=== PATIENT | female | born 1990 | race African-American/Black ===

== ENCOUNTER 2021-09-02 | Emergency (ER) | payer MEDICAID ==
[~2021-09-02] VITALS: Ht 157.5 cm; Wt 113.4 kg
[2021-09-02 00:23] VITALS: BP 149/86
[2021-09-02] MEDS ORDERED: METH4TAB3 PO (00:55)
== END 2021-09-02 01:07 | disposition home or self-care (01) ==
LOC: ER 00:17
DX: J02.9 Acute pharyngitis, unspecified (principal); Z79.899 Other long term (current) drug therapy

== ENCOUNTER 2021-09-13 18:25 | Emergency (ER) | payer MEDICAID ==
[~2021-09-13] VITALS: Ht 157.5 cm; Wt 113.4 kg
[~2021-09-13 18:25] MED LIST: METH4TAB3 PO
[2021-09-13 18:44] VITALS: BP 134/83
--- NOTE | 2021-09-13 18:49 | NUR ---
JERRELL FRANK AT BEDSIDE
[2021-09-13] MEDS ORDERED: TDAP [DIPH/PERTUSSIS/TET] 0.5 ML VIAL IM ONE ×2 (19:00→19:04)
[2021-09-13] MEDS ORDERED: HYDROCODONE/APAP 5/325MG TABLET PO ONE (19:00)
[2021-09-13] MEDS ORDERED: BACI/NEOM/POLY B OINT PKT 1 UDPKT PACKET TP ONE (19:00)
[2021-09-13] MEDS ORDERED: HYDROCODONE/APAP 5/325MG TABLET ONE (19:03)
[2021-09-13] MEDS ORDERED: IBUP-1955 PO (19:18)
[2021-09-13] MEDS ORDERED: HYDR-4303 PO (19:18)
--- NOTE | 2021-09-13 19:36 | NUR ---
Patient discharged to home in stable condition. Written and verbal after care instructions given. Patient verbalizes understanding of instruction. Pt ambulatory with a steady gait
== END 2021-09-13 19:37 | disposition home or self-care (01) ==
LOC: ER 19:01
DX: T21.21XA Burn of second degree of chest wall, initial encounter (principal); T20.22XA Burn of second degree of lip(s), initial encounter; T20.20XA Burn of second degree of head, face, and neck, unspecified site, initial encounter; T79.9XXA Unspecified early complication of trauma, initial encounter; Z79.1 Long term (current) use of non-steroidal anti-inflammatories (NSAID); Z79.891 Long term (current) use of opiate analgesic; Z79.52 Long term (current) use of systemic steroids; X58.XXXA Exposure to other specified factors, initial encounter; Y93.G3 Activity, cooking and baking; Y92.89 Other specified places as the place of occurrence of the external cause; Y99.8 Other external cause status
CPT/HCPCS: 90715